=== PATIENT | female | born 1960 | race Hispanic/Latino ===

== ENCOUNTER 2025-01-19 17:59 | Emergency (ER) | payer MEDICARE ==
[~2025-01-19] VITALS: Ht 160 cm; Wt 83.0 kg
[2025-01-19 18:13] VITALS: RESP 16; TEMP 98.5
[2025-01-19] MEDS ORDERED: KETOROLAC TROMETHAMINE 60 MG/2 ML VIAL ONE (18:30)
[2025-01-19] MEDS: KETOROLAC TROMETHAMINE 60 MG/2 ML VIAL IM STA (18:38)
[2025-01-19 19:31] VITALS: PULSE 80; O2SAT 96
[2025-01-19] MEDS ORDERED: Morphine 4mg INJECTION 4 MG/ML INJ ONE (19:44)
[2025-01-19] MEDS: Morphine 4mg INJECTION 4 MG/ML INJ IM ONE (19:47)
[2025-01-19] MEDS ORDERED: HYDROCODON-ACE1 EA11 PO (19:56)
== END 2025-01-19 20:35 | disposition home or self-care (01) ==
LOC: ER 18:10
DX: M25.562 Pain in left knee (principal); I10 Essential (primary) hypertension; E11.9 Type 2 diabetes mellitus without complications; E78.5 Hyperlipidemia, unspecified; Z85.528 Personal history of other malignant neoplasm of kidney
CPT/HCPCS: 73562; 99283; J1885; J2270